=== PATIENT | male | born 1970 ===

== ENCOUNTER 2024-04-26 17:07 | Inpatient (IN) | payer SELFPAY ==
[~2024-04-26] VITALS: Ht 180.3 cm; Wt 68.0 kg
[2024-04-26] MEDS ORDERED: CYCL15CA23 PO (17:26)
[2024-04-26] MEDS ORDERED: QUET25TA PO (17:26)
[2024-04-26] MEDS ORDERED: DICL25TA2 PO (17:26)
[2024-04-26] MEDS ORDERED: HYDR10SY16 PO (17:26)
[2024-04-26] MEDS ORDERED: LUBI8CAP PO (17:26)
[2024-04-26] MEDS ORDERED: PRAZ1CAP5 PO (17:26)
[2024-04-26] MEDS ORDERED: OMEP20TA20 PO (17:26)
[2024-04-26 17:32] LABS: BASOPHILS % (AUTO) 0.4 % (0.0-2.0); EOSINOPHILS # (AUTO) 0.2 K/uL (0.0-0.7); EOSINOPHILS % (AUTO) 3.3 % (0.0-7.0); HEMATOCRIT 34.4 % (36.7-47.1); HEMOGLOBIN 11.5 g/dL (12.5-16.3); LYMPHOCYTES # (AUTO) 2.1 K/uL (0.8-4.8); LYMPHOCYTES % (AUTO) 28.8 % (20.5-51.5); MEAN CORPUSCULAR HEMOGLOBIN 29.4 uug (23.8-33.4); MEAN CORPUSCULAR HGB CONC 34 g/dL (32.5-36.3); MEAN CORPUSCULAR VOLUME 87.7 fL (73.0-96.2); MONOCYTES # (AUTO) 0.6 K/uL (0.1-1.30); MONOCYTES % (AUTO) 8.3 % (0.0-11.0); NEUTROPHILS # (AUTO) 4.3 K/uL (1.8-8.9); NEUTROPHILS % (AUTO) 59.2 % (38.5-71.5); PLATELET COUNT (AUTO) 318 K/uL (152-348); RED BLOOD CELL COUNT(AUTO) 3.92 MIL/uL (4.06-5.63); RED CELL DISTRIBUTION WIDTH 13.2 % (12.1-16.2); WHITE BLOOD COUNT (AUTO) 7.2 K/uL (3.6-10.2)
[2024-04-26 17:35] LABS: DIFFERENTIAL COMMENT 1
[2024-04-26 17:38] LABS: CALCIUM 8.9 mg/dL (8.5-10.1); CARBON DIOXIDE 26 mmol/L (21-32); CHLORIDE 100 mmol/L (98-107); GLUCOSE 166 mg/dL (74-106); POTASSIUM 3.2 mmol/L (3.5-5.1); SODIUM SERUM 140 mmol/L (136-145); UREA NITROGEN, BLOOD 9 mg/dL (7-18)
[2024-04-26 17:44] LABS: ETHANOL < 3 MG/DL (0-10)
[2024-04-26 17:48] LABS: ALANINE AMINOTRANSFERASE 61 U/L (16-63); ALBUMIN 3.5 g/dL (3.4-5.0); ALKALINE PHOSPHATASE 179 U/L (50-136); ASPARTATE AMINOTRANSFERASE 75 U/L (15-37); BILIRUBIN,DIRECT 0.2 mg/dL (0.0-0.2); BILIRUBIN,TOTAL 0.5 mg/dL (0.2-1.0); TOTAL PROTEIN, SERUM 8.3 g/dL (6.4-8.2)
[2024-04-26 17:54] LABS: LACTIC ACID 4.7 mmol/L (0.4-2.0)
[2024-04-26 17:55] LABS: ACETAMINOPHEN < 10.0 ug/mL (10-30)
[2024-04-26] MEDS ORDERED: VANCOMYCIN IV 200 ML ONE (18:14)
[2024-04-26] MEDS ORDERED: DEXAMETHASONE SOD PHOSPHATE 10 MG INJ ONE (18:14)
[2024-04-26] MEDS ORDERED: CEFTRIAXONE /D5W 50ML IVPB **ER PYXIS IV ONE (18:14)
[2024-04-26 18:33] LABS: AMMONIA 34 umol/L (11-32)
[2024-04-26] MEDS: CEFTRIAXONE 2 G in IV DEXTROSE 5% 100 ML IV ONE (18:34)
[2024-04-26] MEDS: DEXAMETHASONE SOD PHOSPHATE 4 MG INJ IV ONE (18:34)
[2024-04-26] MEDS: VANCOMYCIN IV 1,000 MG in IV DEXTROSE 5% 250 ML IV ONE (18:50)
[2024-04-26] MEDS ORDERED: ONDANSETRON 4 MG/2 ML VIAL IV PRN (20:00)
[2024-04-26] MEDS ORDERED: REMEDY ESSENTIAL ZINC PASTE 113 GM TP PRN (20:00)
[2024-04-26] MEDS ORDERED: MAGNESIUM HYDROXIDE 30 ML LIQUID UDC PO PRN (20:00)
[2024-04-26] MEDS ORDERED: ACETAMINOPHEN 325 MG TABLET PO PRN (20:00)
[2024-04-26 20:29] LABS: *BILIRUBIN,URIN NEGATIVE (NEGATIVE); *BLOOD, URINE NEGATIVE (NEGATIVE); *CLARITY,URINE CLEAR (CLEAR); *COLOR,URINE YELLOW (YELLOW); *KETONES,URINE NEGATIVE (NEGATIVE); *PROTEIN,URINE NEGATIVE (NEGATIVE); LEUKOCYTE ESTERASE ,URINE NEGATIVE (NEGATIVE); NITRITE, URINE NEGATIVE (NEGATIVE); UGLUCOSE NEGATIVE (NEGATIVE)
[2024-04-26 20:38] LABS: *AMPHETAMINE, URINE NEGATIVE (NEGATIVE); *BARBITURATE, URINE NEGATIVE (NEGATIVE); *BENZODIAZEPINE, URINE NEGATIVE (NEGATIVE); *CANNABINOID, URINE NEGATIVE (NEGATIVE); *COCCAINE, URINE NEGATIVE (NEGATIVE); *OPIATE, URINE NEGATIVE (NEGATIVE); *PHENCYCLIDINE SCREEN,URINE NEGATIVE (NEGATIVE); FENTANYL, URINE NEGATIVE (NEGATIVE)
[2024-04-26] MEDS ORDERED: levETIRAcetam IV 500 MG in IV DEXTROSE 5% 100 ML IV SCH (21:00)
[2024-04-26 21:25] VITALS: BP 153/93; TEMP 98; O2SAT 96
[2024-04-26] MEDS ORDERED: levETIRAcetam 500 MG/5 ML VIAL IV ONE (23:18)
[2024-04-26] MEDS: POTASSIUM CHLORIDE 50 ML IV SCH (23:18)
[2024-04-26] MEDS: levETIRAcetam IV 1,000 MG in IV DEXTROSE 5% 100 ML IV SCH (23:34)
[2024-04-27] MEDS: LORAZEPAM 2 MG/1 ML VIAL IV PRN (04:05)
[2024-04-27 04:10] VITALS: BP 138/84; TEMP 97.9; O2SAT 96
[2024-04-27] MEDS ORDERED: QUET25TA36 PO (04:22)
[2024-04-27] MEDS ORDERED: DICL25TA10 PO (04:22)
[2024-04-27] MEDS ORDERED: PRAZ2CAP2 PO (04:22)
[2024-04-27] MEDS ORDERED: QUET300T2 PO (04:22)
[2024-04-27] MEDS ORDERED: HYDR-501 PO (04:22)
[2024-04-27] MEDS ORDERED: OMEP-99 PO (04:22)
[2024-04-27] MEDS ORDERED: CYCL10TA9 PO (04:22)
[2024-04-27] MEDS ORDERED: BUPR1FIL3 SL (06:43)
[2024-04-27] MEDS ORDERED: LUBI8CAP PO (06:43)
[2024-04-27 07:02] LABS: BASOPHILS % (AUTO) 0.8 % (0.0-2.0); EOSINOPHILS % (AUTO) 0.1 % (0.0-7.0); HEMATOCRIT 34.3 % (36.7-47.1); HEMOGLOBIN 11.9 g/dL (12.5-16.3); LYMPHOCYTES # (AUTO) 1.1 K/uL (0.8-4.8); LYMPHOCYTES % (AUTO) 18.9 % (20.5-51.5); MEAN CORPUSCULAR HEMOGLOBIN 30.3 uug (23.8-33.4); MEAN CORPUSCULAR HGB CONC 35 g/dL (32.5-36.3); MEAN CORPUSCULAR VOLUME 87.7 fL (73.0-96.2); MONOCYTES # (AUTO) 0.1 K/uL (0.1-1.30); NEUTROPHILS # (AUTO) 4.7 K/uL (1.8-8.9); NEUTROPHILS % (AUTO) 79.2 % (38.5-71.5); PLATELET COUNT (AUTO) 339 K/uL (152-348); RED BLOOD CELL COUNT(AUTO) 3.91 MIL/uL (4.06-5.63); RED CELL DISTRIBUTION WIDTH 12.7 % (12.1-16.2); WHITE BLOOD COUNT (AUTO) 5.9 K/uL (3.6-10.2)
[2024-04-27 07:09] LABS: DIFFERENTIAL COMMENT 1
[2024-04-27 07:16] LABS: CALCIUM 8.8 mg/dL (8.5-10.1); CREATININE 0.7 mg/dL (0.6-1.3); MAGNESIUM 1.5 mg/dL (1.8-2.4); PHOSPHOROUS 3.4 mg/dL (2.5-4.9); POTASSIUM 4.2 mmol/L (3.5-5.1)
[2024-04-27 07:36] VITALS: BP 129/86; TEMP 98.4; O2SAT 93
[2024-04-27 07:50] LABS: THYROID STIMULATING HORMONE 0.305 mIU/mL (0.358-3.740)
[2024-04-27] MEDS: levETIRAcetam IV 500 MG in IV DEXTROSE 5% 100 ML IV SCH (08:07)
[2024-04-27] MEDS: NICOTINE 21 MG/24HR PATCH TD SCH (08:41)
[2024-04-27] MEDS: MAGNESIUM SULFATE/D5W 100 ML IV SCH (09:26)
[2024-04-27] MEDS ORDERED: levETIRAcetam IV 500 MG in IV DEXTROSE 5% 100 ML IV SCH (11:00)
[2024-04-27] MEDS ORDERED: QUET100T PO ×2 (11:09)
[2024-04-27] MEDS: BUPRENORPHINE HCL 2 MG TAB.SUBL SL SCH (11:13)
[2024-04-27] MEDS: PANTOPRAZOLE SODIUM 40 MG TABLET.DR PO SCH (11:13)
[2024-04-27] MEDS: QUETIAPINE FUMARATE 100 MG TABLET PO SCH ×2 (11:13→20:29)
[2024-04-27 11:39] VITALS: BP 104/63; TEMP 98.4; O2SAT 93
[2024-04-27] MEDS: CYCLOBENZAPRINE HCL 10 MG TABLET PO SCH (12:16)
[2024-04-27] MEDS ORDERED: hydrOXYzine HCL 25 MG TABLET PO PRN (13:00)
[2024-04-27 14:58] VITALS: BP 122/61; TEMP 97.6; O2SAT 97
[2024-04-27] MEDS ORDERED: MAGNESIUM OXIDE 400 MG TABLET PO ONE (16:00)
[2024-04-27] MEDS: DICLOFENAC 75 MG TABLET.DR PO SCH (16:18)
[2024-04-27] MEDS ORDERED: QUETIAPINE FUMARATE 25 MG TABLET PO SCH (17:00)
[2024-04-27] MEDS ORDERED: DICLOFENAC 25 MG TABLET.DR PO SCH (17:00)
[2024-04-27] MEDS ORDERED: LUBIPROSTONE PO SCH (17:00)
[2024-04-27] MEDS: PRAZOSIN HCL 1 MG CAPSULE PO SCH (17:20)
[2024-04-27] MEDS ORDERED: PRAZOSIN HCL PO SCH (18:00)
[2024-04-27 19:05] VITALS: BP 100/62; TEMP 97.7; O2SAT 96
[2024-04-27] MEDS: levETIRAcetam 500 MG TABLET PO SCH (20:29)
[2024-04-28] VITALS: BP 136/87; TEMP 98.1; O2SAT 93
[2024-04-28 04:16] VITALS: BP 135/71; TEMP 98.3; O2SAT 95
[2024-04-28 07:04] LABS: BASOPHILS # (AUTO) 0.1 K/UL (0.0-0.2); BASOPHILS % (AUTO) 1.3 % (0.0-2.0); EOSINOPHILS # (AUTO) 0.1 K/uL (0.0-0.7); EOSINOPHILS % (AUTO) 0.8 % (0.0-7.0); HEMATOCRIT 35.1 % (36.7-47.1); LYMPHOCYTES # (AUTO) 2.8 K/uL (0.8-4.8); LYMPHOCYTES % (AUTO) 33.4 % (20.5-51.5); MEAN CORPUSCULAR HEMOGLOBIN 29.7 uug (23.8-33.4); MEAN CORPUSCULAR HGB CONC 34 g/dL (32.5-36.3); MEAN CORPUSCULAR VOLUME 87.1 fL (73.0-96.2); MONOCYTES # (AUTO) 0.7 K/uL (0.1-1.30); MONOCYTES % (AUTO) 8.6 % (0.0-11.0); NEUTROPHILS # (AUTO) 4.7 K/uL (1.8-8.9); NEUTROPHILS % (AUTO) 55.9 % (38.5-71.5); PLATELET COUNT (AUTO) 338 K/uL (152-348); RED BLOOD CELL COUNT(AUTO) 4.03 MIL/uL (4.06-5.63); RED CELL DISTRIBUTION WIDTH 13.1 % (12.1-16.2); WHITE BLOOD COUNT (AUTO) 8.5 K/uL (3.6-10.2)
[2024-04-28 07:19] LABS: THYROID STIMULATING HORMONE 0.215 mIU/mL (0.358-3.740)
[2024-04-28 07:30] VITALS: BP 113/61; TEMP 98.2; O2SAT 93
[2024-04-28 07:38] LABS: CALCIUM 9.2 mg/dL (8.5-10.1); CREATININE 0.8 mg/dL (0.6-1.3); MAGNESIUM 1.9 mg/dL (1.8-2.4); PHOSPHOROUS 3.2 mg/dL (2.5-4.9); POTASSIUM 4.5 mmol/L (3.5-5.1)
[2024-04-28 08:19] LABS: DIFFERENTIAL COMMENT 1
[2024-04-28] MEDS: QUETIAPINE FUMARATE 100 MG TABLET PO SCH (08:51)
[2024-04-28] MEDS ORDERED: OMEPRAZOLE MAGNESIUM PO SCH (09:00)
[2024-04-28 11:12] VITALS: BP 130/77; TEMP 98.2; O2SAT 96
[2024-04-28 15:25] VITALS: BP 145/93; TEMP 97.6; O2SAT 96
[2024-04-28 20:31] VITALS: BP 160/99; TEMP 97.8; O2SAT 96
[2024-04-28] MEDS: HYDROMORPHONE 1 MG/1 ML DISP.SYRIN IV PRN (22:26)
[2024-04-29 06:20] VITALS: BP 144/95; TEMP 97.5; O2SAT 97
[2024-04-29 11:04] VITALS: BP 150/83; TEMP 97.6; O2SAT 94
[2024-04-29] MEDS ORDERED: LEVE500T9 PO ×2 (12:29→12:30)
== END 2024-04-29 16:00 | disposition home or self-care (01) | DRG 101 ==
LOC: ER 17:09 → TELE3 20:37 → MEDSURG3 04-28 12:24
DX: R56.9 Unspecified convulsions (principal); F11.20 Opioid dependence, uncomplicated; E87.20 Acidosis, unspecified; R55 Syncope and collapse; D64.9 Anemia, unspecified; F17.210 Nicotine dependence, cigarettes, uncomplicated; F10.10 Alcohol abuse, uncomplicated; E87.6 Hypokalemia; R73.9 Hyperglycemia, unspecified; K21.9 Gastro-esophageal reflux disease without esophagitis; M25.512 Pain in left shoulder; E83.42 Hypomagnesemia
CPT/HCPCS: 36415; 70450; 71045; 83605; 83735; 83921; 84100; 84443; 84484; 85025; 85730; 87040; 93307; 93880; G0378; G0480; J0696; J1100; J1171; J1953; J2060; J3370; J3475; J3480